=== PATIENT | male | born 1975 | race Caucasian/White ===

== ENCOUNTER 2017-04-27 23:59 | Emergency (ER) | payer MEDICARE, MEDICAID ==
[~2017-04-27 23:59] MED LIST: LATU1TAB PO; NICO21PAT TD; TRAZ100T OR; TRAZO50TA PO; ZYPR10TA OR
[2017-04-28] MEDS ORDERED: DERMABOND TOPICAL SKIN ADHESIVE TOP ONE (01:15)
[2017-04-28] MEDS ORDERED: CLEO300C2 PO (01:20)
[2017-04-28 01:26] VITALS: BP 120/67
[2017-04-28] MEDS ORDERED: CLINDAMYCIN 150 MG CAP PO ONE (01:30)
--- NOTE | 2017-04-28 08:24 | REP ---
Right index finger series: Four views. History: Question foreign body distal index finger. Findings: Four views of the index finger are presented. These show no opaque foreign body. No fracture is seen. No soft tissue gas is seen. Impression: Negative right index finger views. Signed by Timoteo Killian MD 04/28/2017 08:38 A
== END 2017-04-28 01:26 | disposition home or self-care (01) ==
LOC: M ED 23:59
DX: S61.210A Laceration without foreign body of right index finger without damage to nail, initial encounter (principal); Z72.0 Tobacco use; W25.XXXA Contact with sharp glass, initial encounter; Y92.099 Unspecified place in other non-institutional residence as the place of occurrence of the external cause; Y93.89 Activity, other specified; Y99.9 Unspecified external cause status

== ENCOUNTER 2019-04-09 21:17 | Emergency (ER) | payer MEDICARE, MEDICAID ==
[~2019-04-09] VITALS: Ht 188 cm; Wt 70.0 kg
[2019-04-09 21:17] VITALS: BP 129/76
[~2019-04-09 21:17] MED LIST changes: +CLEO300C2 PO; +TRAZ1TAB10 PO; -TRAZO50TA PO
== END 2019-04-10 00:41 | disposition left against medical advice (07) ==
LOC: M ED 21:17
DX: Z53.21 Procedure and treatment not carried out due to patient leaving prior to being seen by health care provider (principal)

== ENCOUNTER 2019-08-30 12:10 | Emergency (ER) | payer MEDICARE, MEDICAID ==
[~2019-08-30] VITALS: Ht 188 cm; Wt 73.9 kg
[2019-08-30] MEDS ORDERED: CYCLOBENZAPRINE 10 MG TAB PO ONE (13:30)
[2019-08-30] MEDS ORDERED: KETOROLAC 60 MG/2 ML VIAL (J1885) IM ONE (13:30)
[2019-08-30] MEDS ORDERED: ACETAMINOPHEN 325 MG TAB PO ONE (13:30)
--- NOTE | 2019-08-30 14:37 | REP ---
Clinical: Neck pain radiating to the left upper extremity. Technique: Axial noncontrast images from the skull base to the thoracic inlet with coronal and sagittal re-formations. Comparison: 03/16/2015. Findings: The cervical vertebral bodies are relatively intact without evidence for acute fracture / compression injury or subluxation. Straightening of normal lordosis is again appreciated. Early advanced degenerative changes primarily involving C5-6 and C6-7 includes endplate sclerosis, disc space narrowing, marginal and posterior osteophytes along with facet arthropathy. There is associated canal stenosis to approximately 7.8 mm AP diameter at the C5-6 and C6-7 levels. Paravertebral soft tissues are normal. Impression: Early advanced degenerative spondylosis primarily involving C5-6 and C6-7 with associated mild canal stenosis and facet arthropathy causing narrowing to the lateral recesses and neural foramen. Electronically Signed by Ziyad Rocha MD 08/30/2019 02:29 P
[2019-08-30 14:53] VITALS: BP 120/80
[2019-08-30] MEDS ORDERED: CYCL10TA PO (15:09)
[2019-08-30] MEDS ORDERED: METH4TAB8 PO (15:09)
[2019-08-30] MEDS ORDERED: KETO10TAB PO (15:09)
--- NOTE | 2019-09-01 08:10 | ED PDOC ---
Post-Departure Follow-Up dr paige faxed formal report of ct c spine for fu Margarita Fabian MD Sep 01, 2019 08:10
== END 2019-08-30 15:27 | disposition home or self-care (01) ==
LOC: M ED 12:10
DX: M50.122 Cervical disc disorder at C5-C6 level with radiculopathy (principal); M50.123 Cervical disc disorder at C6-C7 level with radiculopathy; G89.29 Other chronic pain; F17.200 Nicotine dependence, unspecified, uncomplicated; Z79.899 Other long term (current) drug therapy; Z87.898 Personal history of other specified conditions; Z88.0 Allergy status to penicillin
CPT/HCPCS: 72125; 96372; 99283; J1885

== ENCOUNTER 2023-06-11 21:59 | Emergency (ER) | payer MEDICARE, MEDICAID ==
[~2023-06-11] VITALS: Ht 188 cm; Wt 74.9 kg
[~2023-06-11 21:59] MED LIST changes: +CYCL-707 PO; +KETO10TAB PO; +METH4TAB8 PO
[2023-06-11 22:07] VITALS: TEMP 97.5
[2023-06-11] MEDS ORDERED: LIDOCAINE 1% MDV 20ML VIAL SC ONE (22:15)
[2023-06-11] MEDS ORDERED: BOOSTRIX VACCINE (TETANUS/DIPHTH/ACEL. PERTUSSIS) 0.5ML SYR IM ONE (22:15)
[2023-06-11 22:45] VITALS: BP 153/71
[2023-06-11 22:59] VITALS: O2SAT 98
== END 2023-06-11 23:30 | disposition home or self-care (01) ==
LOC: M ED 21:59
DX: S89.91XA Unspecified injury of right lower leg, initial encounter (principal); Y93.55 Activity, bike riding; Y92.410 Unspecified street and highway as the place of occurrence of the external cause; Z79.899 Other long term (current) drug therapy; Z88.0 Allergy status to penicillin

== ENCOUNTER 2023-06-26 11:48 | Emergency (ER) | payer MEDICARE, MEDICAID ==
[~2023-06-26] VITALS: Ht 188 cm; Wt 75.9 kg
[2023-06-26 11:49] VITALS: TEMP 97.1
[2023-06-26] MEDS ORDERED: DOXYCYCLINE HYCLATE 100MG TABLET PO ONE (15:10)
[2023-06-26] MEDS ORDERED: DOXY-443 PO (15:11)
[2023-06-26 16:08] VITALS: BP 154/97; O2SAT 97
== END 2023-06-26 16:10 | disposition home or self-care (01) ==
LOC: EEVIPCON 11:48 → M ED 11:48
DX: S81.811S Laceration without foreign body, right lower leg, sequela (principal); J45.909 Unspecified asthma, uncomplicated; F31.9 Bipolar disorder, unspecified; F17.200 Nicotine dependence, unspecified, uncomplicated; F19.10 Other psychoactive substance abuse, uncomplicated; Z88.0 Allergy status to penicillin

== ENCOUNTER 2023-10-30 18:09 | Observation (INO) | payer MEDICARE, MEDICAID ==
[~2023-10-30] VITALS: Ht 188 cm; Wt 70.8 kg
[~2023-10-30 18:09] MED LIST changes: +DOXY-443 PO
[2023-10-30] MEDS: NS 1,000 ML IV ONE ×2 (18:13→19:04)
[2023-10-30] MEDS ORDERED: ISOVUE-370 76% 100ML VIAL As Ordered ONE (18:29)
[2023-10-30 18:40] LABS: BASO % 0.6 % (0.0-1.0); EOS # 0.2 10^3/uL (0.0-0.5); EOS % 3.6 % (0.0-3.0); HEMATOCRIT 37.9 % (42.0-52.0); HEMOGLOBIN 12.9 g/dl (13.5-17.5); LYMPH # 1.5 10^3/uL (1.5-5.0); LYMPH % 32.1 % (24.0-44.0); MEAN CORPUSCULAR HEMOGLOBIN 32.7 pg (27.0-33.0); MEAN CORPUSCULAR VOLUME 96.2 fl (80.0-96.0); MONO # 0.4 10^3/uL (0.0-0.8); MONO % 9.2 % (2.0-8.0); NEUTROPHILS # 2.6 10^3/uL (1.5-8.5); NEUTROPHILS % 54.3 % (36.0-66.0); PLATELET COUNT, AUTOMATED 203 10^3/uL (150-450); RED BLOOD COUNT 3.94 10^6/uL (4.30-6.10); WHITE BLOOD COUNT 4.8 10^3/uL (4.0-10.0)
[2023-10-30 18:51] LABS: INR 1.14; PROTHROMBIN TIME 14.2 SECONDS (12.5-14.5)
[2023-10-30 18:52] LABS: PARTIAL THROMBOPLASTIN TIME 28.2 SECONDS (24.8-34.2)
[2023-10-30 19:04] LABS: ABG BASE EXCESS 0.4 (-2.0-2.0); ABG HCO3 25.9 MMOL/L (22.0-26.0); ABG O2 SATURATION 95.4 % (95.0-99.0); ABG PARTIAL PRESSURE CO2 45.6 mmHg (35.0-45.0); ABG PARTIAL PRESSURE O2 80.2 mmHg (75.0-100.0); ABG STANDARD HCO3 24.8 MMOL/L. (22.0-26.0); ABG TOTAL CO2 27.3 MMOL/L (22.0-29.0); ABG pH (ARTERIAL) 7.373 UNITS (7.350-7.450); CK-MB VALUE MASS 4.1 NG/ML (<3.6)
[2023-10-30] MEDS: LR 1,000 ML IV ONE (19:04)
[2023-10-30 19:05] LABS: ETHYL ALCOHOL (ETHANOL) < 0.003 % (0.000-0.010); LIPASE 25 U/L (12-53)
[2023-10-30 19:07] LABS: ALBUMIN 3.8 G/DL (3.2-5.2); ALKALINE PHOSPHATASE 62 U/L (46-116); ALT/SGPT 23 U/L (7.0-40); AMYLASE 34 U/L (30-118); AST/SGOT 23 U/L (<34); BILIRUBIN,DIRECT 0.5 MG/DL (<0.4); BILIRUBIN,TOTAL 1.3 MG/DL (0.3-1.2); BLOOD UREA NITROGEN 18 MG/DL (9-23); CALCIUM LEVEL 8.5 MG/DL (8.5-10.1); CARBON DIOXIDE LEVEL 31 MMOL/L (20-31); CHLORIDE LEVEL 108 MMOL/L (98-107); CPK CREATINE PHOSPHOKINASE 226 U/L (46-171); CREATININE FOR GFR 0.81 MG/DL (0.70-1.30); GLOMERULAR FILTRATION RATE > 60.0 (>60); GLUCOSE, FASTING 92 MG/DL (60-100); MB/CK RELATIVE INDEX 1.81 (< OR =4); POTASSIUM SERUM 3.7 MMOL/L (3.5-5.1); SODIUM LEVEL 143 MMOL/L (136-145); TOTAL PROTEIN 6.4 G/DL (5.7-8.2)
[2023-10-30] MEDS: CEFEPIME HCL 1 GM in D5W MINI-BAG PLUS 50 ML IV ONE (19:10)
[2023-10-30 19:12] LABS: RSV AMPLIFICATION NEGATIVE (NEGATIVE)
[2023-10-30] MEDS: LIDOCAINE 2% 5ML JELLY UROJET TOP ONE (19:12)
[2023-10-30] MEDS ORDERED: LIDOCAINE W/EPINEPHRINE 1% 20ML VIAL As Ordered ONE (19:12)
[2023-10-30 19:42] LABS: APPEARANCE, URINE CLEAR (CLEAR); BACTERIA, URINE AUTO NEGATIVE (NEGATIVE); BILIRUBIN, URINE AUTO NEGATIVE (NEGATIVE); BLOOD, URINE BLOOD NEGATIVE (NEGATIVE); COLOR, URINE YELLOW (YELLOW); GLUCOSE, URINE (UA) AUTO NEGATIVE (NEGATIVE); KETONE, URINE AUTO NEGATIVE (NEGATIVE); LEUKOCYTE ESTERASE, URINE AUTO NEGATIVE (NEGATIVE); MUCUS, URINE SMALL (NEGATIVE); NITRITE, URINE AUTO NEGATIVE (NEGATIVE); PROTEIN, URINE AUTO NEGATIVE (NEGATIVE); RBC, URINE AUTO 1 /HPF (0-3); SPECIFIC GRAVITY URINE AUTO 1.032 (1.002-1.035); SQUAMOUS EPITHELIAL CELL UR AU 0 /HPF (0-6); WBC, URINE AUTO 1 /HPF (0-3)
[2023-10-30] MEDS: BOOSTRIX VACCINE (TETANUS/DIPHTH/ACEL. PERTUSSIS) 0.5ML SYR IM.IMMUN ONE (19:48)
[2023-10-30] MEDS: metroNIDAZOLE 500 MG in IV 1 EA IV ONE (19:48)
[2023-10-30 20:00] LABS: BARBITURATES URINE NEGATIVE (NEGATIVE)
[2023-10-30 20:02] LABS: METHADONE URINE NEGATIVE (NEGATIVE); PHENCYCLIDINE URINE NEGATIVE (NEGATIVE)
[2023-10-30 20:13] LABS: AMPHETAMINES LEVEL URINE POSITIVE (NEGATIVE); BENZODIAZEPINES URINE POSITIVE (NEGATIVE); CANNABINOIDS URINE POSITIVE (NEGATIVE); COCAINE METABOLITE URINE POSITIVE (NEGATIVE); OPIATES URINE POSITIVE (NEGATIVE)
[2023-10-30] MEDS: MORPHINE 2 MG/ML 1ML VIAL IV PRN (20:40)
[2023-10-30] MEDS ORDERED: ONDANSETRON 4MG 2ML VIAL IV PRN (20:45)
[2023-10-30 21:27] VITALS: BP 134/76; TEMP 97.1; O2SAT 94
[2023-10-30] MEDS: SENOKOT S TAB PO SCH (22:00)
[2023-10-30 22:40] LABS: HEMOGLOBIN 11.1 g/dl (13.5-17.5); MEAN CORPUSCULAR HEMOGLOBIN 32.4 pg (27.0-33.0); MEAN CORPUSCULAR HGB CONC 33.6 g/dl (32.0-36.5); MEAN CORPUSCULAR VOLUME 96.2 fl (80.0-96.0); PLATELET COUNT, AUTOMATED 175 10^3/uL (150-450); RED BLOOD COUNT 3.43 10^6/uL (4.30-6.10); WHITE BLOOD COUNT 5.7 10^3/uL (4.0-10.0)
[2023-10-30] MEDS: NICOTINE 21MG/24HR 1 EA TRANSDERMAL TD SCH (22:40)
[2023-10-30] MEDS ORDERED: HOME MED LIST COMPLETE! XX SCH (22:55)
[2023-10-30] MEDS ORDERED: MORPHINE 2 MG/ML 1ML VIAL IV PRN (23:05)
[2023-10-31] MEDS: PERCOCET 5MG/325MG TAB PO PRN (00:16)
[2023-10-31] MEDS: MORPHINE 2 MG/ML 1ML VIAL IV ONE (00:36)
[2023-10-31 03:43] VITALS: BP 142/74; TEMP 96.5; O2SAT 99
[2023-10-31 05:26] LABS: BASO % 0.2 % (0.0-1.0); EOS # 0.1 10^3/uL (0.0-0.5); EOS % 0.9 % (0.0-3.0); HEMATOCRIT 35.3 % (42.0-52.0); HEMOGLOBIN 11.7 g/dl (13.5-17.5); LYMPH # 0.7 10^3/uL (1.5-5.0); LYMPH % 10.6 % (24.0-44.0); MEAN CORPUSCULAR HEMOGLOBIN 31.6 pg (27.0-33.0); MEAN CORPUSCULAR HGB CONC 33.1 g/dl (32.0-36.5); MEAN CORPUSCULAR VOLUME 95.4 fl (80.0-96.0); MONO # 0.4 10^3/uL (0.0-0.8); MONO % 6.5 % (2.0-8.0); NEUTROPHILS # 5.3 10^3/uL (1.5-8.5); NEUTROPHILS % 81.5 % (36.0-66.0); PLATELET COUNT, AUTOMATED 174 10^3/uL (150-450); WHITE BLOOD COUNT 6.5 10^3/uL (4.0-10.0)
[2023-10-31 07:31] VITALS: BP 143/76; TEMP 97.2; O2SAT 96
[2023-10-31] MEDS: NORCO, ANEXSIA 5/325MG TABLET (HYDROcodone/ACETAMINOPHEN) PO PRN (08:52)
[2023-10-31 11:41] VITALS: BP 135/70; TEMP 98.4; O2SAT 96
[2023-10-31 19:00] VITALS: BP 122/68; TEMP 97.8; O2SAT 97
[2023-11-01 04:00] VITALS: BP 142/82; TEMP 98.3; O2SAT 98
[2023-11-01 08:26] VITALS: BP 149/70; TEMP 97.4; O2SAT 96
[2023-11-01 15:45] VITALS: BP 151/90; TEMP 97.2; O2SAT 96
[2023-11-01 20:26] VITALS: BP 147/90; TEMP 98.3; O2SAT 97
[2023-11-01 20:30] VITALS: BP 149/90; TEMP 98.6; O2SAT 98
[2023-11-01] MEDS: ACETAMINOPHEN TAB 650MG DOSE (2X325MG) PO PRN (23:01)
[2023-11-02 06:00] VITALS: BP 120/88; TEMP 98.8; O2SAT 98
[2023-11-02] MEDS ORDERED: HYDR-3715 PO (08:36)
[2023-11-02] MEDS ORDERED: IBUP-1022 PO (08:36)
== END 2023-11-02 11:09 | disposition home or self-care (01) ==
LOC: M ED 18:09 → M ED INP 18:10 → M PCU 21:31 → M MSPAV 11-01 20:29
PROVIDERS: ADMIT Surgery; ATTEND Surgery
DX: S21.412A Laceration without foreign body of left back wall of thorax with penetration into thoracic cavity, initial encounter (principal); S27.2XXA Traumatic hemopneumothorax, initial encounter; X99.1XXA Assault by knife, initial encounter; Y92.098 Other place in other non-institutional residence as the place of occurrence of the external cause; Y93.89 Activity, other specified; Y99.8 Other external cause status; R06.02 Shortness of breath; R07.9 Chest pain, unspecified; F99 Mental disorder, not otherwise specified; Z91.51 Personal history of suicidal behavior; J45.909 Unspecified asthma, uncomplicated; F17.210 Nicotine dependence, cigarettes, uncomplicated; F16.10 Hallucinogen abuse, uncomplicated; F15.10 Other stimulant abuse, uncomplicated; F11.10 Opioid abuse, uncomplicated; Z88.0 Allergy status to penicillin; Z23 Encounter for immunization
CPT/HCPCS: 12032; 36415; 36600; 71045; 71260; 74177; 80047; 80048; 80076; 80307; 81001; 82077; 82150; 82550; 82553; 82803; 83605; 83690; 84484; 85025; 85027; 85610; 85730; 86850; 86900; 86901; 87631; 90471; 90715; 93041; 94760; 96365; 96375; 96376; 99285; G0378; J0692; J1836; Q9967

== ENCOUNTER 2023-11-11 11:45 | Emergency (ER) | payer MEDICARE, MEDICAID ==
[~2023-11-11] VITALS: Ht 188 cm; Wt 73.0 kg
[~2023-11-11 11:45] MED LIST changes: +HYDR-3715 PO; +IBUP-1022 PO
[2023-11-11 17:45] LABS: BASO % 0.3 % (0.0-1.0); EOS # 0.1 10^3/uL (0.0-0.5); EOS % 1.7 % (0.0-3.0); HEMATOCRIT 39.1 % (42.0-52.0); HEMOGLOBIN 13.2 g/dl (13.5-17.5); LYMPH % 13.7 % (24.0-44.0); MEAN CORPUSCULAR HEMOGLOBIN 32.7 pg (27.0-33.0); MEAN CORPUSCULAR HGB CONC 33.8 g/dl (32.0-36.5); MEAN CORPUSCULAR VOLUME 96.8 fl (80.0-96.0); MONO # 0.6 10^3/uL (0.0-0.8); MONO % 7.4 % (2.0-8.0); NEUTROPHILS # 5.8 10^3/uL (1.5-8.5); NEUTROPHILS % 76.6 % (36.0-66.0); PLATELET COUNT, AUTOMATED 298 10^3/uL (150-450); RED BLOOD COUNT 4.04 10^6/uL (4.30-6.10); WHITE BLOOD COUNT 7.6 10^3/uL (4.0-10.0)
[2023-11-11] MEDS ORDERED: ISOVUE-370 76% 100ML VIAL As Ordered ONE (17:56)
[2023-11-11] MEDS: ALBUTEROL SULFATE 2.5MG/0.5ML INH NEB SOLN NEB ONE (17:59)
[2023-11-11] MEDS ORDERED: VENTAER INH (19:28)
[2023-11-11 19:43] VITALS: BP 143/70; TEMP 99; O2SAT 98
== END 2023-11-11 19:46 | disposition home or self-care (01) ==
LOC: M ED 11:45
DX: M79.81 Nontraumatic hematoma of soft tissue (principal); J45.909 Unspecified asthma, uncomplicated; F31.9 Bipolar disorder, unspecified; M54.50 Low back pain, unspecified; F17.210 Nicotine dependence, cigarettes, uncomplicated; F19.10 Other psychoactive substance abuse, uncomplicated; F10.10 Alcohol abuse, uncomplicated; Z88.0 Allergy status to penicillin; Z79.51 Long term (current) use of inhaled steroids
CPT/HCPCS: 36415; 71046; 74177; 80047; 85025; 94640; 99284; Q9967